=== PATIENT | female | born 1950 | race Caucasian/White ===

== ENCOUNTER 2018-06-29 22:46 | Emergency (ER) | payer SELFPAY ==
--- NOTE | 2018-06-29 23:00 | PDOC ---
History of Present Illness - General History Source: Patient Exam Limitations: No Limitations - History of Present Illness Initial Comments: 06/29/18 23:36 The patient is a 67 year old female, with no significant PMH, who presents to the emergency department with a cough beginning 3 days ago that progressively worsened today. Per patient's daughter, patients cough is accompanied with a sore throat and experiences mild fatigue. The patient denies chest pain, shortness of breath, headache and dizziness. Denies fever, chills, nausea, vomit , diarrhea and constipation. Denies dysuria, frequency, urgency and hematuria. PAST MEDICAL HISTORY: no significant history PAST SURGICAL HISTORY: no significant history FAMILY HISTORY: no pertinent history SOCIAL HISTORY: Pt lives with family and is employed. MEDICATIONS: reviewed ALLERGIES: As per nursing notes Adult ROS General: No fevers or chills, no weakness, no weight loss HEENT: +Sore throat. No change in vision. No ear pain CardioVascular: No chest pain or shortness of breath Respiratory:+cough. No wheezing. Gastrointestinal: no nausea, vomiting, diarrhea or constipation, No rectal bleeding Genitourinary: No dysuria, hematuria, or frequency Musculoskeletal: No joint or muscle pain or swelling Neurologic: No headache, vertigo, dizziness or loss of consciousness Psychiatric: nor depression Skin: No rashes or easy bruising Endocrine: no increased thirst or abnormal weight change Allergic: no skin or latex allergy All other systems reviewed and normal Adult Exam: General: Well-nourished well-developed individual, no acute distress HEENT: Throat: Normal, tonsils normal, no erythema or exudate Neck: +Mild Erythema but no exudate or lymphadenopathy. Chest: Nontender to palpation Cardiac: +Tachycardic, 2/6 systolic murmur.S1-S2 normal. Respiratory:+Diffuse expiratory wheezing at all lungs barton. l Abdomen: Soft, nondistended, normal bowel sounds, nontender to palpation diffusely Extremities: Warm, dry, no cyanosis, clubbing, or edema Skin: No rashes Neuro: Alert and oriented x3, nonfocal exam, grossly intact, normal gait Psych: Normal mood and affect <Marcos Mcduffie - Last Filed: 06/29/18 23:36> - General History Source: Patient Exam Limitations: No Limitations - History of Present Illness Initial Comments: 06/29/18 23:55 By scribe note: This is a 67-year-old female who had a recent upper respiratory tract infection and now comes in complaining of persistent coughing. On my exam patient had a moderate amount of expiratory wheezing. Otherwise patient denied any chest pain However EKG was done Patient given prednisone and to dual nebs post second DuoNeb patient's lungs were clear and she was feeling much better Prescription sent to the pharmacy for an albuterol inhaler as well as a short course of prednisone 40 mg a day for 4 days. <Samson Cabral I - Last Filed: 06/30/18 00:07> - General Chief Complaint: Respiratory Stated Complaint: COUGH Time Seen by Provider: 06/29/18 22:50 Past History <Marcos Mcduffie - Last Filed: 06/29/18 23:36> - Suicide/Smoking/Psychosocial Hx Smoking History: Never smoked Hx Alcohol Use: No Drug/Substance Use Hx: No Substance Use Type: None <Samson Cabral I - Last Filed: 06/30/18 00:07> - Past Medical History Allergies/Adverse Reactions: Allergies Allergy/AdvReac Type Severity Reaction Status Date / Time No Known Allergies Allergy Verified 05/31/15 20:21 Home Medications: Ambulatory Orders predniSONE [Deltasone -] 40 mg PO DAILY #8 tablet 06/29/18 Albuterol Sulfate Inhaler - [Ventolin HFA Inhaler -] 1 - 2 inh PO Q4H #1 inhaler 06/30/18 Benzonatate [Tessalon Pearls -] 100 mg PO TID #21 capsule 06/30/18 *Physical Exam - Vital Signs Last Vital Signs Temp Pulse Resp BP Pulse Ox 99.4 F 85 20 153/83 98 06/29/18 22:47 06/29/18 22:47 06/29/18 22:47 06/29/18 22:47 06/29/18 22:47 <Marcos Mcduffie - Last Filed: 06/29/18 23:36> Moderate Sedation - Procedure Monitoring Vital Signs: Procedure Monitoring Vital Signs Temperature 99.4 F 06/29/18 22:47 Pulse Rate 85 06/29/18 22:47 Respiratory Rate 20 06/29/18 22:47 Blood Pressure 153/83 06/29/18 22:47 O2 Sat by Pulse Oximetry (%) 98 06/29/18 22:47 <FroyMarcos - Last Filed: 06/29/18 23:36> ED Treatment Course - Medications Given in the ED: ED Medications Discontinued Medications Generic Name Dose Route Start Last Admin Trade Name Jenni PRN Reason Stop Dose Admin Prednisone 40 mg 06/29/18 23:01 06/29/18 23:12 Deltasone - PO 06/29/18 23:02 40 mg ONCE ONE Administration <Marcos Mcduffie - Last Filed: 06/29/18 23:36> *DC/Admit/Observation/Transfer - Attestations Scribe Attestion: 06/29/18 23:41 Documentation prepared by Marcos Mcduffie, acting as medical education coordinator for Samson Cabral MD. <Marcos Mcduffie - Last Filed: 06/29/18 23:36> <Samson Cabral I - Last Filed: 06/30/18 00:07> Diagnosis at time of Disposition: Reactive airway disease Qualifiers: Asthma severity: mild Asthma persistence: unspecified Qualified Code(s): J45.909 - Unspecified asthma, uncomplicated - Discharge Dispostion Disposition: HOME Condition at time of disposition: Stable - Patient Instructions Additional Instructions: I sent to prescription to your pharmacy for an inhaler and one for some prednisone. Get the prescriptions filled and take the prednisone 2 tablets a day for the next 4 days. For the inhaler you can use it 2 puffs as often as every 4-6 hours if needed for coughing and shortness of breath. I also sent a prescription to your pharmacy for some cough medicine called Wendi Jamison take one 3 times a day for 7 days Return to the emergency department immediately with ANY new, persistent or worsening symptoms. Continue any medications as previously prescribed by your physician. You should follow up with your primary doctor as soon as possible regarding today's emergency department visit. . Please make sure your doctor reviews the results of your emergency evaluation. Thank you for coming to the Emergency Department today for your care. It was a pleasure to see you today. Please note that your evaluation is INCOMPLETE until you follow-up with your doctor.
[2018-06-29] MEDS ORDERED: predniSONE 20 MG TABLET (UD) PO ONE (23:01)
[2018-06-29 23:07] VITALS: BP 153/83; PULSE 85; TEMP 99.4; BMI 25.6
[2018-06-29] MEDS ORDERED: ALBUTEROL SO4 2.5/IPRATROPIUM 0.5 INH SOL 3 ML VIAL.NEB. NEB ONE ×2 (23:08→23:33)
[2018-06-29] MEDS ORDERED: predniSONE 20 MG TABLET (UD) ONE (23:08)
[2018-06-29] MEDS: ALBUTEROL SO4 2.5/IPRATROPIUM 0.5 INH SOL 3 ML VIAL.NEB. NEB SCH ×2 (23:12→23:51)
[2018-06-30] MEDS: ALBUTEROL SO4 2.5/IPRATROPIUM 0.5 INH SOL 3 ML VIAL.NEB. NEB SCH ×2 (00:02→00:03)
--- NOTE | 2018-06-30 10:57 | EKG ---
Test Reason : Blood Pressure : / mmHG Vent. Rate : 086 BPM Atrial Rate : 086 BPM P-R Int : 152 ms QRS Dur : 068 ms QT Int : 368 ms P-R-T Axes : 015 049 021 degrees QTc Int : 440 ms NORMAL SINUS RHYTHM NONSPECIFIC T WAVE ABNORMALITY ABNORMAL ECG NO PREVIOUS ECGS AVAILABLE Confirmed by BE BENLTEY MD ([id number]) on 06/30/2018 10:57:08 AM Referred By: MD CHRISTIANSON Confirmed By:BE BENTLEY MD
== END 2018-06-30 00:32 | disposition home or self-care (01) ==
LOC: FER 22:46
DX: J45.909 Unspecified asthma, uncomplicated (principal)
CPT/HCPCS: 71046-TC-FY; 93005; 99281-25

== ENCOUNTER 2022-05-26 23:50 | Emergency (ER) | payer OTHER ==
[2022-05-27] VITALS: BP 190/98; PULSE 84; RESP 18; TEMP 98.3; BMI 25.8
[2022-05-27] MEDS ORDERED: guaiFENesin/CODEINE 10 ML UNIT-DOSE CUPS ONE (00:16)
[2022-05-27] MEDS ORDERED: guaiFENesin/CODEINE 10 ML UNIT-DOSE CUPS PO ONE (00:32)
== END 2022-05-27 00:49 | disposition home or self-care (01) ==
LOC: FER 23:50
DX: U09.9 Post COVID-19 condition, unspecified (principal); R05.1 Acute cough
CPT/HCPCS: 99283-25

== ENCOUNTER 2022-09-07 22:53 | Emergency (ER) | payer OTHER ==
[2022-09-07 23:03] VITALS: BP 127/80; PULSE 110; RESP 18; TEMP 99.9; BMI 27.4
[2022-09-07] MEDS ORDERED: SODIUM CHLORIDE 1,000 ML IV STA (23:10)
[2022-09-07 23:34] LABS: ALBUMIN 4.3 g/dl (3.4-5.0); BILIRUBIN,TOTAL 1.1 mg/dl (0.2-1); CALCIUM 9.1 mg/dl (8.5-10); TOT PROT 9.6 g/dl (6.4-8.2)
[2022-09-07] MEDS ORDERED: ONDANSETRON 4 MG/2 ML VIAL IVPUSH ONE (23:40)
[2022-09-07] MEDS ORDERED: ONDANSETRON 4 MG/2 ML VIAL ONE (23:42)
[2022-09-08] MEDS ORDERED: ACETAMINOPHEN 1000 MG/100 ML BAG IVPB ONE (00:10)
[2022-09-08] MEDS ORDERED: ACETAMINOPHEN INJECTION 100 ML IVPB ONE (00:11)
[2022-09-08 00:55] LABS: BASO % 0.2 % (0-2.0); HEMOGLOBIN 14.3 GM/dL (10.7-15.3); LYMPH % 9.3 % (8-40); MCH 32.7 pg (25.7-33.7); MCHC 34.9 g/dl (32.0-36.0); MEAN CELL VOLUME 93.6 fl (80-96); MEAN PLT VOLUME 10.3 fl (7.5-11.1); MONO % 5.6 % (3.8-10.2); NEUT % 84.9 % (42.8-82.8); PLATELET COUNT 239 10^3/uL (134-434); RBC 4.38 M/mm3 (3.60-5.2); RDW 12.6 % (11.6-15.6); WHITE BLOOD COUNT 12.4 K/mm3 (4.0-10.0)
== END 2022-09-08 01:49 | disposition home or self-care (01) ==
LOC: FER 22:53
PROC: 3E033GC Introduction of Other Therapeutic Substance into Peripheral Vein, Percutaneous Approach (ICD-10-PCS; principal; 2022-09-07)
PROC: 3E0337Z Introduction of Electrolytic and Water Balance Substance into Peripheral Vein, Percutaneous Approach (ICD-10-PCS; 2022-09-07)
PROC: 3E033NZ Introduction of Analgesics, Hypnotics, Sedatives into Peripheral Vein, Percutaneous Approach (ICD-10-PCS; 2022-09-08)
DX: K52.9 Noninfective gastroenteritis and colitis, unspecified (principal)
CPT/HCPCS: 36415; 80053; 83690; 84484; 85025; 99284-25

== ENCOUNTER 2023-06-15 18:42 | Observation (INO) | payer SELFPAY ==
[2023-06-15] MEDS ORDERED: ACETAMINOPHEN 1000 MG/100 ML BAG IVPB ONE (19:57)
[2023-06-15] MEDS ORDERED: SODIUM CHLORIDE 0.9% 500 ML INFUS.BAG IV ONE (19:57)
[2023-06-15] MEDS ORDERED: ACETAMINOPHEN INJECTION 100 ML IVPB ONE (20:00)
[2023-06-15 20:13] LABS: HEMATOCRIT 35.3 % (32.4-45.2); MCH 32.7 pg (25.7-33.7); MEAN CELL VOLUME 96.2 fl (80-96); MEAN PLT VOLUME 9.3 fl (7.5-11.1); PLATELET COUNT 248.1 10^3/uL (134-434); RBC 3.67 10^6/uL (3.60-5.2); RDW 12.7 % (11.6-15.6); WHITE BLOOD COUNT 7.5 10^3/uL (4.0-10.8)
[2023-06-15 20:37] LABS: ALBUMIN 4.1 g/dl (3.4-5.0); BILIRUBIN,TOTAL 0.7 mg/dl (0.2-1); CALCIUM 9.1 mg/dl (8.5-10.1); CREATININE 0.6 mg/dl (0.6-1.3); MAGNESIUM 1.8 mg/dL (1.8-2.4); PHOSPHOROUS 2.6 (2.5-4.9); POTASSIUM 4.3 mmol/L (3.5-5.1)
[2023-06-15 23:01] VITALS: BMI 24.6
[2023-06-15] MEDS ORDERED: SODIUM CHLORIDE 1,000 ML IV SCH (23:45)
[2023-06-16 06:30] VITALS: RESP 18
[2023-06-16 08:03] LABS: HEMOGLOBIN 12.2 G/dL (10.7-15.3); MCH 32.6 pg (25.7-33.7); MCHC 33.7 g/dl (32.0-36.0); MEAN CELL VOLUME 96.6 fl (80-96); MEAN PLT VOLUME 8.9 fl (7.5-11.1); PLATELET COUNT 278.5 10^3/uL (134-434); RBC 3.73 10^6/uL (3.60-5.2); RDW 13.1 % (11.6-15.6); WHITE BLOOD COUNT 6.5 10^3/uL (4.0-10.8)
[2023-06-16] MEDS ORDERED: SODIUM CHLORIDE 1,000 ML IV SCH (08:38)
[2023-06-16] MEDS ORDERED: ONDANSETRON 4 MG/2 ML VIAL IVPUSH PRN (08:38)
[2023-06-16] MEDS ORDERED: ACETAMINOPHEN 1000 MG/100 ML BAG IVPB PRN (08:39)
[2023-06-16 09:42] LABS: CREATININE 0.5 mg/dl (0.6-1.3); POTASSIUM 4.5 mmol/L (3.5-5.1)
[2023-06-16] MEDS ORDERED: PATIENT'S OWN MEDICATION (NON-FORMULARY) (Omega-3 Fatty Acids [Omega-3] 1,000 MG Capsule) PO SCH (10:00)
[2023-06-16 12:45] VITALS: BP 141/60; PULSE 83; TEMP 99.3
[2023-06-16 12:59] LABS: PLATELET ESTIMATE ADEQUATE
[2023-06-16] MEDS ORDERED: PATIENT'S OWN MEDICATION (NON-FORMULARY) (Simvastatin 10 MG Tablet) PO SCH (22:00)
== END 2023-06-16 13:41 | disposition home or self-care (01) ==
LOC: FER 18:42 → FM/S 21:38
PROVIDERS: ADMIT Internal Medicine; ATTEND Internal Medicine
PROC: 3E033NZ Introduction of Analgesics, Hypnotics, Sedatives into Peripheral Vein, Percutaneous Approach (ICD-10-PCS; principal; 2023-06-15)
PROC: 3E0337Z Introduction of Electrolytic and Water Balance Substance into Peripheral Vein, Percutaneous Approach (ICD-10-PCS; 2023-06-15)
DX: R50.9 Fever, unspecified (principal); E78.5 Hyperlipidemia, unspecified; E87.1 Hypo-osmolality and hyponatremia; R94.5 Abnormal results of liver function studies; Z90.49 Acquired absence of other specified parts of digestive tract
CPT/HCPCS: 0241U-QW; 36415; 71045-TC-FY; 74160-TC; 80048; 80053; 81003; 82436; 82550; 83605; 83735; 83930; 83935; 84100; 84133; 84300; 84484; 85027; 87040; 87086; 93005; 99285-25; G0378; Q9967

== ENCOUNTER 2023-06-16 23:00 | Inpatient (IN) | payer SELFPAY ==
[2023-06-16] MEDS ORDERED: VANCOMYCIN 1,000 MG in DEXTROSE 5%-WATER - 250 ML IVPB ONE (23:04)
[2023-06-17] MEDS ORDERED: VANCOMYCIN 1,000 MG VIAL (RESTRICTED TO ID ONLY) ONE (00:09)
[2023-06-17 00:25] LABS: HEMATOCRIT 36.3 % (32.4-45.2); MCH 31.4 pg (25.7-33.7); MEAN CELL VOLUME 95.2 fl (80-96); MEAN PLT VOLUME 8.8 fl (7.5-11.1); PLATELET COUNT 302 10^3/uL (134-434); RBC 3.82 M/mm3 (3.60-5.2); RDW 12.1 % (11.6-15.6); WHITE BLOOD COUNT 7.6 K/mm3 (4.0-10.0)
[2023-06-17 00:33] VITALS: BMI 25.0
[2023-06-17 00:45] LABS: POTASSIUM 4.3 mmol/L (3.5-5.1)
[2023-06-17 00:46] LABS: CALCIUM 8.7 mg/dL (8.5-10.1)
[2023-06-17 00:48] LABS: ALBUMIN 3.2 g/dl (3.4-5.0); BLOOD UREA NITROGEN 12.3 mg/dL (7-18)
[2023-06-17 00:51] LABS: CREATININE 0.6 mg/dL (0.55-1.3)
[2023-06-17 00:52] LABS: BILIRUBIN,TOTAL 0.4 mg/dL (0.2-1); TOT PROT 8.4 g/dl (6.4-8.2)
[2023-06-17 08:16] LABS: HEMATOCRIT 36.4 % (32.4-45.2); HEMOGLOBIN 12.1 G/dL (10.7-15.3); MCHC 33.2 g/dl (32.0-36.0); MEAN CELL VOLUME 96.4 fl (80-96); MEAN PLT VOLUME 8.7 fl (7.5-11.1); PLATELET COUNT 283.3 10^3/uL (134-434); RBC 3.78 10^6/uL (3.60-5.2); RDW 13.1 % (11.6-15.6); WHITE BLOOD COUNT 6.3 10^3/uL (4.0-10.8)
[2023-06-17 08:46] LABS: CREATININE 0.6 mg/dl (0.6-1.3); POTASSIUM 4.8 mmol/L (3.5-5.1)
[2023-06-17] MEDS: OMEGA-3 ACID ETHYL ESTERS (FATTY-ACIDS) 1 GM CAPSULE (FP) PO SCH (09:23)
[2023-06-17 09:46] LABS: PLATELET ESTIMATE ADEQUATE
[2023-06-17] MEDS ORDERED: VANCOMYCIN/WATER FOR INJ (PEG) 1,000 MG/200 ML BAG IVPB SCH (13:00)
[2023-06-17] MEDS: VANCOMYCIN/WATER FOR INJ (PEG) 1,000 MG/200 ML BAG IVPB SCH (13:11)
[2023-06-17] MEDS ORDERED: ACETAMINOPHEN 1000 MG/100 ML BAG IVPB PRN (13:22)
[2023-06-17] MEDS: ATORVASTATIN CA 10 MG TABLET (FP) PO SCH (21:07)
[2023-06-18] MEDS: VANCOMYCIN/WATER FOR INJ (PEG) 1,000 MG/200 ML BAG IVPB SCH (01:19)
[2023-06-18 06:36] VITALS: RESP 18
[2023-06-18] MEDS: OMEGA-3 ACID ETHYL ESTERS (FATTY-ACIDS) 1 GM CAPSULE (FP) PO SCH (09:26)
[2023-06-18] MEDS: CEFTRIAXONE 1 GM in DEXTROSE 5%-WATER - 50 ML IVPB SCH (09:26)
[2023-06-18 09:45] LABS: BILIRUBIN,DIRECT 0.2 mg/dL (0.0-0.2); BILIRUBIN,TOTAL 0.8 mg/dl (0.2-1); CALCIUM 9.4 mg/dl (8.5-10.1); CREATININE 0.6 mg/dl (0.6-1.3); MAGNESIUM 2.1 mg/dL (1.8-2.4); PHOSPHOROUS 3.8 (2.5-4.9); POTASSIUM 4.7 mmol/L (3.5-5.1)
[2023-06-18 10:42] LABS: BASO % 0.6 % (0-2.0); EOS % 2.4 % (0-4.5); HEMATOCRIT 37.6 % (32.4-45.2); HEMOGLOBIN 12.5 GM/dL (10.7-15.3); LYMPH % 34.4 % (8-40); MCH 31.7 pg (25.7-33.7); MCHC 33.4 g/dl (32.0-36.0); MEAN PLT VOLUME 8.6 fl (7.5-11.1); MONO % 10.3 % (3.8-10.2); NEUT % 52.3 % (42.8-82.8); PLATELET COUNT 343 10^3/uL (134-434); RBC 3.95 M/mm3 (3.60-5.2); RDW 12.2 % (11.6-15.6); WHITE BLOOD COUNT 6.5 K/mm3 (4.0-10.0)
[2023-06-18] MEDS: ATORVASTATIN CA 10 MG TABLET (FP) PO SCH (21:29)
[2023-06-19 09:40] LABS: CALCIUM 9.5 mg/dl (8.5-10.1); CREATININE 0.6 mg/dl (0.6-1.3); MAGNESIUM 2.1 mg/dL (1.8-2.4); PHOSPHOROUS 4.2 (2.5-4.9); POTASSIUM 4.7 mmol/L (3.5-5.1)
[2023-06-19 09:45] LABS: BASO % 0.7 % (0-2.0); EOS % 3.4 % (0-4.5); HEMATOCRIT 36.7 % (32.4-45.2); HEMOGLOBIN 12.3 GM/dL (10.7-15.3); LYMPH % 32.1 % (8-40); MCH 31.9 pg (25.7-33.7); MCHC 33.5 g/dl (32.0-36.0); MEAN CELL VOLUME 95.1 fl (80-96); MEAN PLT VOLUME 8.6 fl (7.5-11.1); MONO % 9.8 % (3.8-10.2); PLATELET COUNT 379 10^3/uL (134-434); RBC 3.86 M/mm3 (3.60-5.2); RDW 12.4 % (11.6-15.6); WHITE BLOOD COUNT 6.8 K/mm3 (4.0-10.0)
[2023-06-19] MEDS: CEFTRIAXONE 1 GM in DEXTROSE 5%-WATER - 50 ML IVPB SCH (09:47)
[2023-06-19] MEDS: OMEGA-3 ACID ETHYL ESTERS (FATTY-ACIDS) 1 GM CAPSULE (FP) PO SCH (09:47)
[2023-06-19] MEDS: ATORVASTATIN CA 10 MG TABLET (FP) PO SCH (21:16)
[2023-06-20 09:03] LABS: ALBUMIN 3.8 g/dl (3.4-5.0); BILIRUBIN,TOTAL 0.7 mg/dl (0.2-1); CALCIUM 9.3 mg/dl (8.5-10.1); CREATININE 0.6 mg/dl (0.6-1.3); POTASSIUM 4.3 mmol/L (3.5-5.1); TOT PROT 7.7 g/dl (6.4-8.2)
[2023-06-20] MEDS: CEFTRIAXONE 1 GM in DEXTROSE 5%-WATER - 50 ML IVPB SCH (09:19)
[2023-06-20] MEDS: OMEGA-3 ACID ETHYL ESTERS (FATTY-ACIDS) 1 GM CAPSULE (FP) PO SCH (09:19)
[2023-06-20 10:42] LABS: BASO % 0.5 % (0-2.0); HEMATOCRIT 34.7 % (32.4-45.2); HEMOGLOBIN 12.1 GM/dL (10.7-15.3); LYMPH % 32.2 % (8-40); MCH 32.8 pg (25.7-33.7); MCHC 34.7 g/dl (32.0-36.0); MEAN CELL VOLUME 94.3 fl (80-96); MEAN PLT VOLUME 8.4 fl (7.5-11.1); NEUT % 52.3 % (42.8-82.8); PLATELET COUNT 409 10^3/uL (134-434); RBC 3.68 M/mm3 (3.60-5.2); RDW 12.3 % (11.6-15.6); WHITE BLOOD COUNT 6.7 K/mm3 (4.0-10.0)
[2023-06-20 12:09] VITALS: BP 132/72; PULSE 78; TEMP 97.8
== END 2023-06-20 12:36 | disposition home or self-care (01) ==
LOC: FER 23:00 → FM/S 06-17 00:06
PROVIDERS: ADMIT Internal Medicine
DX: Z79.2 Long term (current) use of antibiotics (principal); R78.81 Bacteremia
CPT/HCPCS: 36415; 80048; 80053; 80076; 83735; 84100; 85025; 85027; 86140; 87040; 87496; 87799; 93306-TC; 99285-25